=== PATIENT | female | born 1995 | race Caucasian/White ===

== ENCOUNTER 2023-05-03 14:28 | Emergency (ER) | payer OTHER ==
[2023-05-03] MEDS ORDERED: SODIUM CHLORIDE 0.9% 1,000 ML IV ONE (15:00)
[2023-05-03] MEDS ORDERED: MECLIZINE 12.5 MG TAB PO STA (15:00)
--- NOTE | 2023-05-03 15:37 | CT ---
EXAMINATION TYPE: CT brain wo con DATE OF EXAM: 05/03/2023 COMPARISON: None HISTORY: dizziness CT DLP: 1157.9 mGycm. Automated Exposure Control for Dose Reduction was Utilized. TECHNIQUE: CT scan of the head is performed without contrast. FINDINGS: There is no acute intracranial hemorrhage, mass effect, or midline shift identified. The ventricles and sulci are within normal limits in size. The globes are intact and the visualized sin uses are clear. IMPRESSION: No acute intracranial hemorrhage, mass effect, or midline shift is seen.
--- NOTE | 2023-05-03 15:39 | ED ---
General Adult HPI - General Stated complaint: painful ears Time Seen by Provider: 05/03/23 14:44 Source: patient, RN notes reviewed Mode of arrival: ambulatory Limitations: no limitations - History of Present Illness Initial comments: 27-year-old female presents emergency Department chief complaint of ear pain, congestion, dizziness. She states that she's been diagnosed with 70 infections the last couple months. Patient states that she's urgent care PCP and ENT. Patient states she saw ENT at the time she was feeling well. She states that she's been having worsening dizziness that causes her not be able to move because when she moves symptoms worsen. She denies any chest pain she states that she had some lab work for regular routine checkup a while ago but denies any known history of thyroid disease she states that she's not been diagnosed with vertigo or Mnire's disease. Patient denies any chest pain denies any new medications she states she's been on several antibiotics - Related Data Previous Rx's Medication Instructions Recorded Meclizine [Antivert] 25 mg PO TID PRN #15 tab 05/03/23 predniSONE 50 mg PO DAILY #5 tab 05/03/23 Allergies Allergy/AdvReac Type Severity Reaction Status Date / Time No Known Allergies Allergy Verified 05/03/23 14:44 Review of Systems ROS Statement: Those systems with pertinent positive or pertinent negative responses have been documented in the HPI. ROS Other: All systems not noted in ROS Statement are negative. Past Medical History Additional Past Medical History / Comment(s): multiple ear infections History of Any Multi-Drug Resistant Organisms: None Reported Past Surgical History: No Surgical Hx Reported Past Psychological History: No Psychological Hx Reported Smoking Status: Never smoker Past Alcohol Use History: None Reported Past Drug Use History: None Reported General Exam Limitations: no limitations General appearance: alert, in no apparent distress Head exam: Present: atraumatic, normocephalic, normal inspection Eye exam: Present: normal appearance, PERRL, EOMI. Absent: scleral icterus, conjunctival injection, periorbital swelling ENT exam: Present: normal exam, normal oropharynx, mucous membranes moist Neck exam: Present: normal inspection, full ROM. Absent: tenderness, meningismus, lymphadenopathy Respiratory exam: Present: normal lung sounds bilaterally. Absent: respiratory distress, wheezes, rales, rhonchi, stridor Cardiovascular Exam: Present: normal rhythm, tachycardia, normal heart sounds. Absent: systolic murmur, diastolic murmur, rubs, gallop, clicks GI/Abdominal exam: Present: soft, normal bowel sounds. Absent: distended, tenderness, guarding, rebound, rigid Neurological exam: Present: alert, oriented X3, CN II-XII intact, reflexes normal. Absent: motor sensory deficit Skin exam: Present: warm, dry, intact, normal color. Absent: rash Course Vital Signs 05/03/23 05/03/23 05/03/23 14:41 16:10 17:55 Temperature 98.6 F 98.1 F Pulse Rate 120 H 98 91 Respiratory 16 16 18 Rate Blood Pressure 128/81 131/80 O2 Sat by Pulse 98 98 99 Oximetry Medical Decision Making - Medical Decision Making Was pt. sent in by a medical professional or institution (Dr. PA, MAIL MACHINE OPERATOR, urgent care, hospital, or [place] [facility] facility...) When possible be specific @ -No Did you speak to anyone other than the patient for history (EMS, parent, family, police, friend...)? What history was obtained from this source @ -No Did you review nursing and triage notes (agree or disagree)? Why? @ -I reviewed and agree with nursing and triage notes Were old charts reviewed (outside hosp., previous admission, EMS record, old EKG, old radiological studies, urgent care reports/EKG's, [place] [facility] facility records)? Report findings @ -No old charts were reviewed Differential Diagnosis (chest pain, altered mental status, abdominal pain women, abdominal pain men, vaginal bleeding, weakness, fever, dyspnea, syncope, headache, dizziness, GI bleed, back pain, seizure, CVA, palpatations, mental health, musculoskeletal)? @ -Eustachian tube dysfunction, Mnire's disease, hepatitis, vertigo, otitis media EKG interpreted by me (3pts min.). @ -[None X-rays interpreted by me (1pt min.). @ -None done CT interpreted by me (1pt min.). @ -CT brain no acute intracranial process no mass U/S interpreted by me (1pt. min.). @ -None done What testing was considered but not performed or refused? (CT, X-rays, U/S, labs)? Why? @ -None What meds were considered but not given or refused? Why? @ -None Did you discuss the management of the patient with other professionals (professionals i.e. DrSarah, PA, MAIL MACHINE OPERATOR, lab, RT, psych nurse, social security specialist, dye machine operator, teacher, consumer safety officer, business case analyst)? Give summary @ -No Was smoking cessation discussed for >3mins.? @ -No Was critical care preformed (if so, how long)? @ -No Were there social determinants of health that impacted care today? How? (Homelessness, low income, unemployed, alcoholism, drug addiction, transportation, low edu. Level, literacy, decrease access to med. care, nursing home, r ehab)? @ -No Was there de-escalation of care discussed even if they declined (Discuss DNR or withdrawal of care, Hospice)? DNR status @ -No What co-morbidities impacted this encounter? (DM, HTN, Smoking, COPD, CAD, Cancer, CVA, ARF, Chemo, Hep., AIDS, mental health diagnosis, sleep apnea, morbid obesity)? @ -None Was patient admitted / discharged? Hospital course, mention meds given and route, prescriptions, significant lab abnormalities, going to OR and other pertinent info. @ -Discharge patient's does feel improved at the Antivert we discussed possibility of inflammatory process such as labyrinthitis, eustachian tube dysfunction. Patient we discharged advised follow-up with ENT. Undiagnosed new problem with uncertain prognosis? @ -No Drug Therapy requiring intensive monitoring for toxicity (Heparin, Nitro, Insulin, Cardizem)? @ -No Were any procedures done? @ -No Diagnosis/symptom? @ -[Labyrinthitis eustachian tube dysfunction Acute, or Chronic, or Acute on Chronic? @ -[Acute Uncomplicated (without systemic symptoms) or Complicated (systemic symptoms)? @ -Uncomplicated Side effects of treatment? @ -No Exacerbation, Progression, or Severe Exacerbation? @ -No Poses a threat to life or bodily function? How? (Chest pain, [place], [place], pneumonia, PE, COPD, DKA, ARF, appy, cholecystitis, CVA, Diverticulitis, Homicidal, Suicidal, threat to staff... and all critical care pts) @ -No - Lab Data Result diagrams: 05/03/23 15:21 05/03/23 15:21 Lab Results 11/04/23 11/04/23 11/04/23 Range/Units 15:21 15:21 15:21 WBC 6.0 (3.8-10.6) k/uL RBC 5.05 (3.80-5.40) m/uL Hgb 15.1 (11.4-16.0) gm/dL Hct 44.7 (34.0-46.0) % MCV 88.5 (80.0-100.0) fL MCH 29.8 (25.0-35.0) pg MCHC 33.7 (31.0-37.0) g/dL RDW 12.9 (11.5-15.5) % Plt Count 290 (150-450) k/uL MPV 7.5 Neutrophils % 52 % Lymphocytes % 30 % Monocytes % 10 % Eosinophils % 3 % Basophils % 1 % Neutrophils # 3.1 (1.3-7.7) k/uL Lymphocytes # 1.8 (1.0-4.8) k/uL Monocytes # 0.6 (0-1.0) k/uL Eosinophils # 0.2 (0-0.7) k/uL Basophils # 0.0 (0-0.2) k/uL Sodium 140 (137-145) mmol/L Potassium 4.3 (3.5-5.1) mmol/L Chloride 105 (98-107) mmol/L Carbon Dioxide 24 (22-30) mmol/L Anion Gap 11 mmol/L BUN 12 (7-17) mg/dL Creatinine 0.91 (0.52-1.04) mg/dL Est GFR (CKD-EPI)AfAm >90 (>60 ml/min/1.73 sqM) Est GFR (CKD-EPI)NonAf 88 (>60 ml/min/1.73 sqM) Glucose 103 H (74-99) mg/dL Calcium 9.4 (8.4-10.2) mg/dL Total Bilirubin 0.4 (0.2-1.3) mg/dL AST 28 (14-36) U/L ALT 33 (4-34) U/L Alkaline Phosphatase 66 (38-126) U/L Total Protein 7.5 (6.3-8.2) g/dL Albumin 4.2 (3.5-5.0) g/dL TSH 3.220 (0.465-4.680) mIU/L Influenza Type A (PCR) Not Detected (Not Detectd) Influenza Type B (PCR) Not Detected (Not Detectd) RSV (PCR) Not Detected (Not Detectd) SARS-CoV-2 (PCR) Not Detected (Not Detectd) Disposition Clinical Impression: Acute labyrinthitis, Vertigo, Eustachian tube dysfunction Disposition: HOME SELF-CARE Condition: Stable Instructions (If sedation given, give patient instructions): Vertigo (ED) Additional Instructions: Please return to the Emergency Department if symptoms worsen or any other concerns. Prescriptions: Meclizine [Antivert] 25 mg PO TID PRN #15 tab PRN Reason: Vertigo predniSONE 50 mg PO DAILY #5 tab Is patient prescribed a controlled substance at d/c from ED?: No Referrals: Brittney Fuentes MD [Primary Care Provider] - 1-2 days Time of Disposition: 17:48
[2023-05-03 15:46] LABS: Basophils % (A) 1 %; Eosinophils # (A) 0.2 k/uL (0-0.7); Eosinophils % (A) 3 %; HCT 44.7 % (34.0-46.0); HGB 15.1 gm/dL (11.4-16.0); Lymphocytes # (A) 1.8 k/uL (1.0-4.8); Lymphocytes % (A) 30 %; MCH 29.8 pg (25.0-35.0); MCHC 33.7 g/dL (31.0-37.0); MCV 88.5 fL (80.0-100.0); Mean Platelet Volume 7.5; Monocytes # (A) 0.6 k/uL (0-1.0); Monocytes % (A) 10 %; Neutrophils # (A) 3.1 k/uL (1.3-7.7); Neutrophils % (A) 52 %; Platelet Count 290 k/uL (150-450); RBC 5.05 m/uL (3.80-5.40); RDW 12.9 % (11.5-15.5)
[2023-05-03 17:07] LABS: ALT 33 U/L (4-34); AST 28 U/L (14-36); African American GFR (CKD) >90 (>60 ml/min/1.73 sqM); Albumin 4.2 g/dL (3.5-5.0); Alkaline Phosphatase 66 U/L (38-126); Anion Gap 11 mmol/L; Blood Urea Nitrogen 12 mg/dL (7-17); Calcium 9.4 mg/dL (8.4-10.2); Carbon Dioxide 24 mmol/L (22-30); Chloride 105 mmol/L (98-107); Glucose 103 mg/dL (74-99); Non-African American GFR(CKD) 88 (>60 ml/min/1.73 sqM); Potassium 4.3 mmol/L (3.5-5.1); Sodium 140 mmol/L (137-145); Total Bilirubin 0.4 mg/dL (0.2-1.3); Total Protein 7.5 g/dL (6.3-8.2)
[2023-05-03 18:05] VITALS: BP 131/80; PULSE 91; RESP 18; TEMP 98.1
== END 2023-05-03 17:55 | disposition home or self-care (01) ==
LOC: EC 14:28
DX: H69.93 Unspecified Eustachian tube disorder, bilateral (principal); H83.03 Labyrinthitis, bilateral; R42 Dizziness and giddiness; Z20.822 Contact with and (suspected) exposure to COVID-19
CPT/HCPCS: 36415; 70450; 80053; 84443; 85025; 87636; 96360; 99283